=== PATIENT | female | born 1945 ===

== ENCOUNTER 2022-09-05 05:23 | Day surgery (SDC) | payer OTHER ==
[~2022-09-05 05:23] MED LIST: AVAPRO300 MG PO; GLUMETZA1000 MG PO; LANTUS; NORVASC10 MG PO; NOVOLIN 70100 UNIT/1; PROVENT IH; SINGULAIR10 MG PO
== END 2022-09-05 11:05 | disposition home or self-care (01) ==
LOC: CIR.AMB 05:23
PROVIDERS: ATTEND Surgery Surgery of the Hand
DX: M19.041 Primary osteoarthritis, right hand (principal); Z03.818 Encounter for observation for suspected exposure to other biological agents ruled out; Z20.828 Contact with and (suspected) exposure to other viral communicable diseases; Z20.822 Contact with and (suspected) exposure to COVID-19; Z88.2 Allergy status to sulfonamides; Z91.013 Allergy to seafood